=== PATIENT | male | born 1970 | race Caucasian/White ===

== ENCOUNTER 2020-12-07 12:32 | Outpatient (REF) | payer OTHER, SELFPAY ==
--- NOTE | ~2020-12-07 | XR_ITS ---
EXAMINATION: XR FOOT, LEFT CLINICAL INFORMATION: Plantar fascia is COMPARISON: None TECHNIQUE: AP, lateral, and oblique views of the left foot. FINDINGS: Bone alignment is normal. No fracture or dislocation is seen. There is an osteophyte at the anterior tibiotalar joint. The joint spaces are otherwise normal. There is a small plantar calcaneal spur. No soft tissue calcification is seen. XR/XR foot LT min 3V IMPRESSION: Small plantar calcaneal spur. No plantar soft tissue calcification.
== END 2020-12-07 12:33 | disposition home or self-care (01) ==
LOC: HO.XRAY 12:32
PROVIDERS: Visit Provider Podiatrist
DX: M72.2 Plantar fascial fibromatosis (principal)
CPT/HCPCS: 73630

== ENCOUNTER 2021-02-18 04:52 | Emergency (ER) | payer OTHER, SELFPAY ==
--- NOTE | ~2021-02-18 | XR_ITS ---
EXAMINATION: CHEST X-RAY AND THORACIC SPINE X-RAY CLINICAL INFORMATION: Back pain COMPARISON: Previous chest x-ray January 2018 TECHNIQUE: 2 views of the chest and 2 views of the thoracic spine FINDINGS: Chest: The cardiac and mediastinal contours are stable. There is subsegmental atelectasis at the left lung base. The lungs are otherwise clear. There is no pleural effusion or pneumothorax. Bony structures are unremarkable. Thoracic spine: Bone alignment is normal. No fracture or dislocation is seen. Disc spaces are normal. There is mild degenerative spondylosis of the lower thoracic spine. XR/XR chest 2V IMPRESSION: Chest: Unremarkable exam. Thoracic spine: Mild degenerative spondylosis of the lower thoracic spine.
--- NOTE | ~2021-02-18 | XR_ITS ---
EXAMINATION: CHEST X-RAY AND THORACIC SPINE X-RAY CLINICAL INFORMATION: Back pain COMPARISON: Previous chest x-ray January 2018 TECHNIQUE: 2 views of the chest and 2 views of the thoracic spine FINDINGS: Chest: The cardiac and mediastinal contours are stable. There is subsegmental atelectasis at the left lung base. The lungs are otherwise clear. There is no pleural effusion or pneumothorax. Bony structures are unremarkable. Thoracic spine: Bone alignment is normal. No fracture or dislocation is seen. Disc spaces are normal. There is mild degenerative spondylosis of the lower thoracic spine. XR/XR thoracic spine 2V IMPRESSION: Chest: Unremarkable exam. Thoracic spine: Mild degenerative spondylosis of the lower thoracic spine.
[2021-02-18 06:21] VITALS: BP 104/66; PULSE 64; RESP 18; TEMP 36.4; O2SAT 99; BMI 29.8
--- NOTE | 2021-02-18 06:42 | ED.BACK ---
HPI - Back Pain/Injury General Chief Complaint: Back Pain/Injury Stated Complaint: Difficulty Breathing Time Seen by Provider: 02/18/21 06:41 Source: patient Mode of arrival: ambulatory Limitations: no limitations History of Present Illness HPI Narrative: 3 days of upper back pain, denies injury. Denies cough or fever. patient with abdominal pain that he feels in the back. Denies nausea or vomiting. MD elicited complaint: back pain Onset (ago): day(s) (3) Timing: intermittent Severity: mild Quality: dull Location: thoracic spine Radiation: abdomen Exacerbating factors: none Relieving factors: none Associated symptoms: denies other symptoms Related Data Home Medications Medication Instructions Recorded Confirmed clonidine HCl 1 tab PO BID PRN 02/18/21 02/18/21 fluticasone propionate [Flovent 1 puff PO BID 02/18/21 02/18/21 HFA] ibuprofen 1 tab PO QID PRN 02/18/21 02/18/21 omeprazole 1 cap PO QAM 02/18/21 02/18/21 Previous Rx's Medication Instructions Recorded cyclobenzaprine 10 mg PO TID #10 tab 02/18/21 naproxen [Naprosyn] 500 mg PO BID #20 tab 02/18/21 Allergies Allergy/AdvReac Type Severity Reaction Status Date / Time Penicillins [PENICILLINS] Allergy Unknown HIVES Unverified 05/31/20 19:03 Review of Systems Constitutional: Constitutional: Reports no additional constitutional complaints Eyes: Eyes: Reports no additional eye complaints ENT: Denies dizziness Cardiovascular: Cardiovascular: Reports no additional cardiovascular complaints Respiratory: Respiratory: Reports as per HPI Gastrointestinal: Gastrointestinal: Reports no additional gastrointestinal complaints Musculoskeletal: Musculoskeletal: Reports no additional musculoskeletal complaints Integumentary/Breasts: Skin/Breast: Denies rash Neurologic: Reports system reviewed and no additional complaints, except as documented, Denies dizziness and Denies Sensory deficit (Neuro) Psychiatric: Psychiatric: Denies anxiety PMFSH Past Medical History Medical History GERD (gastroesophageal reflux disease) Methadone maintenance therapy patient Right knee pain Social History Social History Alcohol intake: current Alcohol intake frequency: 0-2 drinks per day Patient Tobacco Use Status: Current everyday Tobacco user Smoked in Last 30 Days: Yes Use of substances other than those prescribed or required for medical reasons: Yes Substance Use Type: Marijuana Substance Use Frequency: Chronic Longstanding Last Used Substance: Just Prior to Admission Advance Directives: No Advance Directives Information Provided: No Physical Exam Vital Signs: Vital Signs: Last Vital Signs Temp 97.6 F 02/18/21 06:21 Pulse 64 02/18/21 06:21 Resp 18 02/18/21 06:21 BP 104/66 02/18/21 06:21 Pulse Ox 99 02/18/21 06:21 Body Mass Index 29.8 Const: General: healthy appearing Nutritional Appearance: average body habitus Orientation/consciousness: oriented to person and patient oriented x3 Limitations: no limitations HENMT: Head: Yes normal to inspection Ears: external ears normal General nose exam: Normal external nose present Mouth: Normal oral and palatal mucosa present and oropharynx normal Throat: Yes posterior oropharynx normal Eyes: General: appearance normal, both eyes and all related structures Neck: Other: supple Neck: Yes normal visual inspection Chest: Chest palpation & inspection: normal inspection of the chest Resp: Auscultation: clear to auscultation bilaterally Cardio: Jugular venous distension: no JVD Rate: regular rate Rhythm: regular rhythm Heart sounds: S1 normal heart sound present and S2 normal heart sound present GI: Inspection: Yes normal to inspection Palpation (GI): Soft to palpation, nontender and No hepatosplenomegaly present Auscultation: normal bowel sounds Back/Spine/Pelvis: Other: patient with upper back pain with movement Skin: General skin exam: no rashes or lesions noted Neuro: General: oriented to person and patient oriented x3 Cranial nerves: Yes CN's II-XII intact bilaterally Motor exam (neuro): 5/5 motor strength present throughout Sensory Exam: No Sensory deficit (Neuro) Extrem: General: Yes normal to inspection Psych: Appearance: grossly normal Course Course Course Narrative: On exam patient with completely soft abdomen. pain with rotation of upper back seems muscular skeletal Reevaluation(s) Reevaluation #1: xrays normal, history and physical most consistent with muscular skeletal pain will dc on NSAIDs and flexeril Time: 08:22 MDM - Back Pain/Injury Imaging Data Chest x-ray: Radiologist's impression: IMPRESSION: Chest: Unremarkable exam. Thoracic spine: Mild degenerative spondylosis of the lower thoracic spine. thoracic spine: Radiologist's impression: IMPRESSION: Chest: Unremarkable exam. Thoracic spine: Mild degenerative spondylosis of the lower thoracic spine. Discharge Plan Discharge Clinical Impression: Thoracic back pain Qualifiers: Chronicity: acute Back pain laterality: bilateral Qualified Code(s): M54.6 - Pain in thoracic spine Patient Disposition: Home, Self-Care Prescriptions: New cyclobenzaprine 10 mg tablet 10 mg PO TID Qty: 10 RF: 0 naproxen [Naprosyn] 500 mg tablet 500 mg PO BID Qty: 20 RF: 0 No Action clonidine HCl 0.1 mg tablet 1 tab PO BID PRN (Reason: anxiety) RF: 0 omeprazole 20 mg capsule,delayed release(DR/EC) 1 cap PO QAM RF: 0 Flovent HFA 220 mcg/actuation HFA aerosol inhaler 1 puff PO BID RF: 0 ibuprofen 600 mg tablet 1 tab PO QID PRN (Reason: pain) RF: 0 Referrals: Eva Duarte PA [Primary Care Provider] - 1 week
[2021-02-18] MEDS: Ketorolac Tromethamine 60 MG/2 ML VIAL IM (07:18)
== END 2021-02-18 09:13 | disposition home or self-care (01) ==
PROVIDERS: Emergency Provider Emergency Medicine; PCP Physician Assistant Medical
DX: M54.6 Pain in thoracic spine (principal)
CPT/HCPCS: 71046; 72070; 96372; 99284; J1885

== ENCOUNTER → 2021-06-25 11:08 | Outpatient (REF) | payer OTHER, SELFPAY ==
--- NOTE | 2021-06-25 11:24 | ECG_ITS ---
Test Reason : methadone, qt prolongation Blood Pressure : / mmHG Vent. Rate : 054 BPM Atrial Rate : 054 BPM P-R Int : 164 ms QRS Dur : 102 ms QT Int : 442 ms P-R-T Axes : 070 018 041 degrees QTc Int : 419 ms Sinus bradycardia Intra-ventricular conduction delay Borderline ECG When compared with ECG of 12-MAY-2019 17:08, No significant change was found Referred By: Zoë Koenig Electronically Signed By:KULDIP CHA MD
== END ==
LOC: HO.CARD 11:08
PROVIDERS: Visit Provider Family Medicine
DX: Z79.899 Other long term (current) drug therapy (principal)
CPT/HCPCS: 93005

== ENCOUNTER 2022-01-07 07:25 | Outpatient (REF) | payer OTHER, SELFPAY ==
--- NOTE | ~2022-01-07 | XR_ITS ---
EXAMINATION: XR knee RT 2V, XR knee standing BI CLINICAL INFORMATION: Reason for Exam M25.569 - Pain in unspecified knee COMPARISON: None available at the time of this dictation. TECHNIQUE: frontal, lateral, tunnel and patella sunrise views FINDINGS: BONES: There is a radiolucency in the subarticular surface of medial femoral condyle concerning for possible osteochondral injury. Roughly 1.7 cm seen on the frontal view. JOINTS: Advanced degenerative osteoarthritis of the right knee medial more than lateral compartment and patellofemoral joint, loss of joint spaces and developed large osteophyte from the edges of endplates. Mild DJD of the left knee. SOFT TISSUE: Normal XR/XR knee RT 2V IMPRESSION: *Suspicion for possible osteochondral injury of the right medial femoral condyle, this can be evaluated by MRI if clinically indicated. *Advanced tricompartment degenerative osteoarthritis of the right knee especially medial compartment, very mild DJD left knee.
--- NOTE | ~2022-01-07 | XR_ITS ---
EXAMINATION: XR knee RT 2V, XR knee standing BI CLINICAL INFORMATION: Reason for Exam M25.569 - Pain in unspecified knee COMPARISON: None available at the time of this dictation. TECHNIQUE: frontal, lateral, tunnel and patella sunrise views FINDINGS: BONES: There is a radiolucency in the subarticular surface of medial femoral condyle concerning for possible osteochondral injury. Roughly 1.7 cm seen on the frontal view. JOINTS: Advanced degenerative osteoarthritis of the right knee medial more than lateral compartment and patellofemoral joint, loss of joint spaces and developed large osteophyte from the edges of endplates. Mild DJD of the left knee. SOFT TISSUE: Normal XR/XR knee standing BI IMPRESSION: *Suspicion for possible osteochondral injury of the right medial femoral condyle, this can be evaluated by MRI if clinically indicated. *Advanced tricompartment degenerative osteoarthritis of the right knee especially medial compartment, very mild DJD left knee.
== END 2022-01-07 07:26 | disposition home or self-care (01) ==
LOC: HO.HOSX 07:25
PROVIDERS: Visit Provider Physician Assistant
DX: M17.11 Unilateral primary osteoarthritis, right knee (principal); F17.210 Nicotine dependence, cigarettes, uncomplicated
CPT/HCPCS: 73560; 73565; 99202

== ENCOUNTER → 2022-01-20 12:17 | Outpatient (BNVA) | payer OTHER, SELFPAY | PROVIDERS: PCP Physician Assistant Medical; Visit Provider Orthopaedic Surgery | DX: M17.11 Unilateral primary osteoarthritis, right knee (principal) | CPT/HCPCS: 99202 ==

== ENCOUNTER 2022-06-09 13:52 | Outpatient (REF) | payer OTHER, SELFPAY ==
--- NOTE | ~2022-06-09 | XR_ITS ---
EXAMINATION: XR UPRIGHT AP VIEWS OF BOTH KNEES XR LATERAL AND PATELLA VIEWS OF LEFT KNEE CLINICAL INFORMATION: Pain in the knee. COMPARISON: X-ray of both knees December 2021. TECHNIQUE: AP upright views of both knees and patellofemoral and lateral view of the left knee. FINDINGS: Left Knee: There are small marginal osteophytes about all compartments. Mild joint space narrowing medial compartment. Small joint effusion. Right Knee Limited AP Upright: There is genu varus. There is severe joint space narrowing and medial compartment with flattening of the surface of the femoral condyle at the articular surface. There are prominent marginal osteophytes. The joint space in the lateral compartment with prominent marginal osteophytes unchanged. Patellofemoral compartment not assessed. XR/XR knee standing BI IMPRESSION: Mild osteoarthritis of the left knee, unchanged. Advanced osteoarthritis of the right knee, unchanged.
--- NOTE | ~2022-06-09 | XR_ITS ---
EXAMINATION: XR UPRIGHT AP VIEWS OF BOTH KNEES XR LATERAL AND PATELLA VIEWS OF LEFT KNEE CLINICAL INFORMATION: Pain in the knee. COMPARISON: X-ray of both knees December 2021. TECHNIQUE: AP upright views of both knees and patellofemoral and lateral view of the left knee. FINDINGS: Left Knee: There are small marginal osteophytes about all compartments. Mild joint space narrowing medial compartment. Small joint effusion. Right Knee Limited AP Upright: There is genu varus. There is severe joint space narrowing and medial compartment with flattening of the surface of the femoral condyle at the articular surface. There are prominent marginal osteophytes. The joint space in the lateral compartment with prominent marginal osteophytes unchanged. Patellofemoral compartment not assessed. XR/XR knee LT 2V IMPRESSION: Mild osteoarthritis of the left knee, unchanged. Advanced osteoarthritis of the right knee, unchanged.
== END 2022-06-09 13:53 | disposition home or self-care (01) ==
LOC: HO.HOSX 13:52
PROVIDERS: Visit Provider Orthopaedic Surgery
DX: M17.11 Unilateral primary osteoarthritis, right knee (principal); M54.16 Radiculopathy, lumbar region; M25.562 Pain in left knee
CPT/HCPCS: 20610; 73560; 73565; 99212; J1100

== ENCOUNTER → 2022-07-10 11:12 | Outpatient (BNVA) | payer OTHER, SELFPAY | PROVIDERS: Visit Provider Orthopaedic Surgery | DX: M17.11 Unilateral primary osteoarthritis, right knee (principal) | CPT/HCPCS: 20610; 99212; J1100 ==

== ENCOUNTER → 2022-11-24 14:35 | Outpatient (BNVA) | payer OTHER, SELFPAY | PROVIDERS: Visit Provider Orthopaedic Surgery | DX: M17.11 Unilateral primary osteoarthritis, right knee (principal) | CPT/HCPCS: 99212 ==